=== PATIENT | male | born 1995 | race Caucasian/White ===

== ENCOUNTER 2017-04-04 11:21 | Emergency (ER) | payer OTHER ==
[~2017-04-04] VITALS: Ht 182.9 cm; Wt 76.7 kg
[2017-04-04 11:22] VITALS: TEMP 36.4; Ht 182.9 cm; Wt 76.7 kg
--- NOTE | 2017-04-04 13:14 | EMERGENCY ROOM VISIT NOTE ---
History First contact with patient: 11:38 Chief Complaint: EYE ASSESSMENT Stated Complaint: VISION ISSUES AFTER EYE INJURY, BLURRY History of Present Illness The patient is a 21 year old male who presents to the Emergency Room via private vehicle with complaints of "vision issues after eye injury, blurry". The patient states that yesterday he was playing dodge ball, when he was struck in the left periorbital region with a dodgeball. Since then he has had haziness , and blurry vision. He notes now it is more localized to the medial aspect of his left eye visual field. He notes that it feels as though when one stands up too quickly and he gets spots in their vision is his visual disturbance now in the left eye. He notes no pain. There is no headache, light sensitivity. He was wearing contacts at the time but now is wearing glasses. There was no loss of consciousness. Review of Systems A complete 6-point Review of Systems was discussed with the patient, with pertinent positives and negatives listed in the History of Present Illness. All remaining Review of Systems questions can be considered negative unless otherwise specified. Past Medical/Surgical History No pertinent Family History No pertinent Social History Smoking Status: Never Smoker Pt lives locally Physical Exam Vital Signs Date Time Temp Pulse Resp B/P (MAP) Pulse Ox O2 Delivery O2 Flow Rate FiO2 04/04/17 13:19 70 16 121/73 98 04/04/17 11:22 36.4 82 18 126/66 96 Room Air Right Eye Acuity: 20/13 Left Eye Acuity: 20/20 Physical Exam VITAL SIGNS - Vital signs and nursing notes were reviewed. Stable. GENERAL -21-year-old male appearing his stated age who is in no acute distress. Communicates well with provider and answers questions appropriately. SKIN - Without rashes. No petechial rashes. The left periorbital region is unremarkable. The integument is intact. There is no bruising or edema. EYES - PERRL with EOMI bilaterally. Sclera [] without noticeable foreign body or excoriations. No injection noted in the L eye. Without subconjunctival hemorrhage. Palpebral conjunctiva pink and moist with no injection or discharge noted. Brief fundoscopic exam demonstrates no AV-nicking, cotton wool spots, or flame hemorrhages. Slit lamp examination performed as further described. Slit Lamp Examination was performed of the L eye(s). Alcaine drops were applied to the affected eye(s) for proper anesthetization. The affected eye(s) were stained with Fluorescein stain to precipitate adequate visualization of any conjunctival/scleral excoriations or ulcers. The patient's face was comfortably rested on the chin guard of the slit lamp apparatus. The lights were dimmed and the affected eye(s) were thoroughly examined under microscopy using the blue light. No uptake was present in the L eye. Additionally, the eye(s) were examined under microscopy using the regular light. Close examination revealed a normal exam. Patient tolerated the procedure well and no complications were met. Medical Decision & Procedures Medical Decision Patient was seen and evaluated as above. He presents to us today with left eye visual disturbances post eye trauma that happened yesterday. He is nontoxic on exam. The external eye exam is normal. No evidence of hyphema. Slit lamp exam unremarkable. There is no pain. The case was discussed with the attending physician, and then subsequently the on-call annealing operator, Dr. Nix. He notes that the patient can be seen in his office tomorrow at 11 AM. I believe this is reasonable. There is no emergent process upon exam. Patient was happy with plan of care, was educated upon management, educated upon worrisome symptoms which to return, and was discharged home in good condition. In the evaluation and treatment of this patient, the following differential diagnoses were considered: Corneal Abrasion, Conjunctivitis, Eye Contusion, Globe Injury, Orbital Floor Injury (Blowout Fracture), Corneal Ulcer, Keratitis , Herpes Zoster Opthalmic, Blepharitis, Orbital Cellulitis, Iritis, Scleritis/ Episcleritis, Uveitis, Temporal Arteritis, Subconjunctival Hemorrhage. Impression Primary Impression: Eye trauma Departure Information Dispostion Home / Self-Care Condition GOOD Referrals [facility] (PCP) Guido Nix M.D. Patient Instructions My [facility] Additional Instructions You have been treated in the Emergency Department for L eye visual disturbances. For pain control, you can use the following [id number] medicines (if >12 yo): - Regular strength (325mg/tab) Tylenol (acetaminophen) 2 tabs every 4-6 hours as needed. Do not exceed 12 tablets in a 24 hour period. Avoid taking more than 3 grams (3000 mg) of Tylenol per day. This includes any other sources of acetaminophen you may take on a regular basis. - Regular strength (200 mg/tab) Advil (ibuprofen) 1-2 tabs every 4-6 hours as needed. Do not exceed a dose of 3200 mg per day. Avoid rubbing your eyes for the next few days as this can cause irritation. Wear sunglasses when outside to help minimize your pain. You should relax in a quiet, dark room to help minimize your symptoms. You should seek evaluation of your left eye by the eye doctor tomorrow, Dr. Nix of associate at 11am. Return to the emergency department if you develop the following symptoms despite treatment course outlined above: blurry vision, loss of vision, fever, intractable pain, increased redness, swelling, or purulent discharge.
[2017-04-04 13:19] VITALS: BP 121/73; PULSE 70; O2SAT 98
== END 2017-04-04 13:20 | disposition home or self-care (01) ==
LOC: C.EDB 11:23 → C.EDD 13:20
DX: S05.92XA Unspecified injury of left eye and orbit, initial encounter (principal); W22.8XXA Striking against or struck by other objects, initial encounter; Y93.6A Activity, physical games generally associated with school recess, summer camp and children; Y99.8 Other external cause status